=== PATIENT | female | born 2000 | race Two or more races ===

== ENCOUNTER 2023-11-09 12:50 | Emergency (ER) | payer OTHER ==
[~2023-11-09] VITALS: Ht 162.6 cm; Wt 53.1 kg
[2023-11-09] MEDS ORDERED: KETOROLAC TROMETHAMINE 60 MG VIAL IM ONE (14:45)
[2023-11-09] MEDS ORDERED: DICLOFENAC SODI50 MG PO (15:34)
[2023-11-09] MEDS ORDERED: NORFLEX100MG PO (15:34)
== END 2023-11-09 16:19 | disposition home or self-care (01) ==
LOC: ER 12:51
DX: M94.0 Chondrocostal junction syndrome [Tietze] (principal)